=== PATIENT | female | born 1970 | race Caucasian/White ===

== ENCOUNTER 2025-05-14 14:50 | Outpatient (CLI) | payer OTHER, SELFPAY ==
--- NOTE | ~2025-05-14 | US_ITS ---
Pelvic ultrasound. Clinical History: Postmenopausal bleeding Technique: Realtime transabdominal and transvaginal scanning of the pelvis was performed. Color flow Doppler and Doppler spectral analysis were performed. Findings: The uterus is retroverted.. Probable large dominant fibroid measuring 6.5 x 6.6 x 6 point c entimeters. Additional fibroid measures 2.9 x 2.8 x 2.5 cm. Endometrial stripe is not well delineated . Neither ovary seen. No other adnexal mass seen.. There is no evidence of free fluid in the cul de sac. Impression: Uterine fibroids, as above. Endometrial stripe is not well delineated due to obscuration by fibroids. Consider follow-up MR to be tter evaluate for endometrial thickening, as indicated. Reviewed, dictated and finalized at [facility]. Impression: Uterine fibroids, as above. Endometrial stripe is not well delineated due to obscuration by fibroids. Consi sean follow-up MR to better evaluate for endometrial thickening, as indicated.
== END 2025-05-14 14:51 | disposition home or self-care (01) ==
LOC: GOSHIMG 14:51
PROVIDERS: PCP Nurse Practitioner Obstetrics & Gynecology; Visit Provider Nurse Practitioner Obstetrics & Gynecology
DX: D25.9 Leiomyoma of uterus, unspecified (principal); N95.0 Postmenopausal bleeding
CPT/HCPCS: 76830; 76856